=== PATIENT | male | born 1990 | race African-American/Black ===

== ENCOUNTER 2020-07-19 18:41 | Emergency (ER) | payer OTHER, SELFPAY ==
--- NOTE | ~2020-07-19 | XR_ITS ---
EXAMINATION: XR chest 2V DATE: 07/19/2020 20:10 INDICATION: Chest pain, sickle cell crisis TECHNIQUE: PA and lateral views of the chest are obtained. COMPARISON: None available FINDINGS: The lungs are free of acute opacities. There is no pleural effusion or pneumothorax. The ca rdiomediastinal silhouette is normal. The visualized bones and soft tissues are unremarkable. Surgica l clips in the right upper quadrant are likely from prior cholecystectomy. IMPRESSION: 1. No acute cardiopulmonary abnormality. Reviewed, dictated and finalized at location A.
[2020-07-19 18:53] VITALS: BP 139/84; PULSE 100; RESP 20; TEMP 36.9; O2SAT 99
[2020-07-19 19:17] LABS: Basophils Absolute Auto 0.1 K/mm3 (0.0-0.1); Basophils Percent Auto 1.2 % (0.2-1.2); Eosinophils Absolute Auto 0.5 K/mm3 (0-0.3); Eosinophils Percent Auto 4.7 % (0-4.4); Hematocrit 32.7 % (42.0-52.0); Hemoglobin 10.4 g/dL (14.0-18.0); Immature Granulocyte Absolute 0.03 K/mm3 (0.00-0.031); Immature Granulocyte Percent A 0.3 % (0-0.5); Immature Reticulocyte Fraction 32.6 % (3.0-15.9); Lymphocytes Absolute Auto 3.98 K/mm3 (0.9-3.2); Lymphocytes Percent Auto 35.3 % (18.3-44.2); Mean Corpuscular HGB Conc 31.8 g/dl (32-36); Mean Corpuscular Hemoglobin 17.3 pg (26-34); Mean Corpuscular Volume 54.3 fl (80-100); Monocytes Percent Auto 9.1 % (2.6-8.5); Neutrophils Absolute Auto 5.6 K/mm3 (1.3-6.7); Neutrophils Percent Auto 49.4 % (45.5-73.1); Nucleated Red Blood Cells Absolute Auto 0.5 K/mm3 (0.0-0.012); Platelet Count Result 601 k/mm3 (150-375); Red Blood Count 6.02 M/mm3 (4.6-6.20); Red Cell Distribution Width 25.2 % (11.5-14.5); Reticulocyte Hemoglobin Conten 19.3 pg (28.2-35.7); Reticulocyte Percent 1.83 % (0.7-4.3); Reticulocytes Absolute 0.11 B/L (32.2-175.7); White Blood Count 11.3 K/mm3 (4.5-10.0)
[2020-07-19 19:22] LABS: Alanine Aminotransferase 21 U/L (4-50); Albumin Level 4.6 g/dL (3.5-5.1); Alkaline Phosphatase 76 U/L (38-126); Anion Gap 10 mmol/L (8-16); Aspartate Amino Transferase 28 U/L (17-59); Bilirubin,Total 1.3 mg/dL (0.2-1.3); Blood Urea Nitrogen 12 mg/dL (9-20); Calcium 8.9 mg/dL (8.4-10.2); Carbon Dioxide 24 mmol/L (22-30); Chloride 104 mmol/L (98-107); Estimated CRCL calculation 113 ml/min; Estimated Glomerular Filt Rate > 60; Glucose 126 mg/dL (75-110); Potassium 3.8 mmol/L (3.4-5.0); Sodium 138 mmol/L (137-145)
[2020-07-19 19:53] LABS: Anisocytosis 3+ (NORMAL); Hypochromasia 1+ (NORMAL); Platelet Estimate Increased (Adequate)
[2020-07-19] MEDS: SODIUM CHLORIDE 0.9% IV 1,000 ML 999 ML IV CONT ×2 (20:34→21:31)
--- NOTE | 2020-07-19 20:38 | ED.GENADULT ---
HPI - General Adult General Chief complaint: Unspecified Stated complaint: sickle cell Time Seen by Provider: 07/19/20 19:47 Source: patient Mode of arrival: ambulatory Limitations: no limitations History of Present Illness HPI narrative: 29 years old -[place] male presents with pain across lumbar area radiating through right thigh started 1-1/2-week ago. Patient denies any fever, chills, nausea, vomiting, chest pain, shortness of breath, headache. History of sickle cell anemia, currently patient on oxycodone 30 mg every 6 hours as needed pain. Which is not working lately. Patient is from [place] came to visit his brother yesterday, Patient was seen at [facility] in [place] on July 17, received IV fluid, IV Dilaudid and got better. Patient was not admitted to the hospital at that time. Patient blaming the long hours drives probably triggered his lower back pain. Related Data Home Medications Medication Instructions Recorded Confirmed cholecalciferol (vitamin D3) 25 mcg PO DAILY 07/19/20 07/19/20 [Vitamin D3] folic acid 1 mg PO DAILY 07/19/20 07/19/20 hydroxyurea (sickle cell) 500 mg PO BID 07/19/20 07/19/20 Allergies Allergy/AdvReac Type Severity Reaction Status Date / Time vancomycin Allergy Severe Muscle Verified 07/19/20 19:45 Spasms Review of Systems Review of Systems: Narrative: CONSTITUTIONAL: Denies fever, chills, or sweats. EYES: Denies visual changes, redness, or discharge. ENT: Denies rhinorrhea, congestion, sore throat, or otalgia. CARDIOVASCULAR: Denies chest pain, palpitations, or edema. RESPIRATORY: Denies cough or dyspnea. GASTROINTESTINAL: Denies abdominal pain, nausea, vomiting, or diarrhea. GENITOURINARY: Denies dysuria or hematuria. SKIN: Denies rash or itching. MUSCULOSKELETAL: Denies back pain, joint pain, or myalgia. NEUROLOGIC: Denies headache, numbness, or weakness. PSYCHIATRIC: Denies anxiety or depression. PMFSH Social History Social History (Updated 07/19/20 @ 20:44 by Ilia Pino MD) Social History: Patient denies smoking or drinking. Second hand tobacco smoke exposure: No Exam Narrative: Exam Narrative: General appearance: Well-developed, well-nourished Skin: Normal color Head: Normocephalic, nontraumatic Eyes: Clear conjunctiva ENT: Oropharynx normal, ears normal, nose normal Neck: Supple, nontender Chest and respiratory: Airway patent, no respiratory distress, no accessory muscle use Heart: Regular rate/rhythm Abdomen: Soft, nontender, no organomegaly, quiet bowel sounds Vascular: Normal peripheral pulses, normal capillary refill. Musculoskeletal: Normal range of motion, nontender back Neurologic: Alert and oriented ?3, BUNDLE CLERK is normal as tested, no gross motor deficit Course Course Emergency Course: Improving Reevaluation(s) Reevaluation #1: Patient feeling much better and would like to have lasted 0.5 mg of Dilaudid IV prior to discharge. Patient received 1 mg and so far. And is getting better. Patient would like to go home. Date: 07/19/20 Time: 23:24 Vital Signs Vital signs: Vital Signs Temperature 36.9 C 07/19/20 18:53 Pulse Rate 100 07/19/20 18:53 Respiratory Rate 20 07/19/20 18:53 Blood Pressure 139/84 07/19/20 18:53 Pulse Oximetry 99 07/19/20 18:53 Temperature 36.9 C 07/19/20 18:53 Pulse Rate 80 07/19/20 21:31 Respiratory Rate 18 07/19/20 21:31 Blood Pressure 123/73 07/19/20 21:31 Pulse Oximetry 98 07/19/20 21:31 Medical Decision Making MDM Narrative Medical decision making narrative: Patient presents with lower back pain and right lower leg pain which is very much similar to his previo
[2020-07-19] MEDS: ONDANSETRON INJ 4 MG/2 ML VIAL IV PUSH (21:23)
[2020-07-19] MEDS: HYDROmorphone HCL INJ (*CRX) 1 MG/ML SYR 0.5 MG IV PUSH ×3 (21:23→23:19)
[2020-07-19 21:31] VITALS: BP 123/73; PULSE 80; RESP 18; O2SAT 98
[2020-07-19 23:48] VITALS: BP 124/73; PULSE 79; RESP 16; O2SAT 98
== END 2020-07-19 23:49 | disposition home or self-care (01) ==
PROVIDERS: Emergency Provider Emergency Medicine
DX: D57.00 Hb-SS disease with crisis, unspecified (principal)
CPT/HCPCS: 36415; 71046; 80053; 85025; 85046; 85055; 96361; 96374; 96375; 96376; 99284; J1170; J2405; J7030

== ENCOUNTER 2020-07-20 23:52 | Emergency (ER) | payer MEDICARE, SELFPAY ==
--- NOTE | ~2020-07-20 | XR_ITS ---
XR femur RT min 2V 07/21/2020 00:37 Indication: Sickle cell crisis. Right leg pain. Procedure: 2 views right femur Comparison: No prior studies for comparison. Findings: No acute fracture, subluxation or dislocation. There is patchy sclerosis of the mid and dis ollie femoral shaft, suspicious for bone infarction. No significant soft tissue abnormality. No foreign bodies. Impression: 1: Patchy sclerosis of the mid and distal right femoral shaft, suspicious for bone infarction. Reviewed, dictated and finalized at location A. Impression: 1: Patchy sclerosis of the mid and distal right femoral shaft, suspicious for b one infarction.
--- NOTE | ~2020-07-20 | XR_ITS ---
LUMBAR SPINE INDICATION: Low back pain TECHNIQUE: 4 views lumbar spine COMPARISON: None FINDINGS: No fracture, subluxation or dislocation. No evidence for spondylolysis or spondylolisthesi s. Vertebral bodies and disk spaces are preserved. IMPRESSION: 1: No acute abnormality of the lumbar spine identified. Reviewed, dictated and finalized at location A.
--- NOTE | ~2020-07-20 | XR_ITS ---
EXAMINATION: XR chest 2V 07/21/2020 00:37 INDICATION: Sickle cell crisis. Chest pain. PROCEDURE: PA and lateral views of the chest COMPARISON: 07/19/2020 FINDINGS: The lungs are clear. The cardiomediastinal silhouette is within normal limits. There are no pleural effusions. There is no pneumothorax suspected. There are cholecystectomy clips. IMPRESSION: 1: NO ACUTE CARDIOPULMONARY DISEASE. Reviewed, dictated and finalized at location A.
--- NOTE | ~2020-07-20 | XR_ITS ---
XR hip BI 2V w AP pelvis 07/21/2020 00:37 INDICATION: Hip pain. Sickle cell crisis. PROCEDURE: AP view of the pelvis and 2 views each hip COMPARISON: No prior studies for comparison. FINDINGS: Fracture, dislocation or subluxation is not identified. There is an intramedullary sophie morales sfixing the left femur with healing fracture deformity of the left femoral shaft. There is adjacent h eterotopic ossification. The soft tissues appear within normal limits. No foreign bodies are identif ied. IMPRESSION: 1: NO ACUTE BONE OR JOINT ABNORMALITY IDENTIFIED. Reviewed, dictated and finalized at location A.
[2020-07-21 00:03] VITALS: BP 128/77; PULSE 78; RESP 20; TEMP 36.8; O2SAT 100
--- NOTE | 2020-07-21 00:08 | ED.RECABL ---
HPI - Recheck/Abnormal Lab/Rx General Chief Complaint: Recheck/Abnormal Lab/Rx Stated Complaint: sickle cell pain Time Seen by Provider: 07/21/20 00:07 Source: patient and family Mode of arrival: ambulatory Limitations: no limitations History of Present Illness HPI narrative: Patient is a 29-year-old male with a history of sickle cell disease who presents with family for evaluation of recurrent pain in his lower back and right hip. Patient was seen here yesterday in the ER for similar pain and left feeling improved but then pain recurred this afternoon. Patient has been taking his oxycodone with some improvement in his pain but not complete resolution. He denies fever, chills, chest pain, shortness of breath. No rhinorrhea or congestion. He states he is in town from [place] visiting family does not live here permanently. He states he does not have a pain management plan that he can do outpatient at this point. Patient states he believes the drive from [place] aggravated his lower back pain. Patient's radar mechanic is also in [place]. He has not contacted them over the phone. No recent sick contacts. No nausea, vomiting or abdominal pain. Patient denies any urinary symptoms. Related Data Home Medications Medication Instructions Recorded Confirmed cholecalciferol (vitamin D3) 25 mcg PO DAILY 07/19/20 07/19/20 [Vitamin D3] folic acid 1 mg PO DAILY 07/19/20 07/19/20 hydroxyurea (sickle cell) 500 mg PO BID 07/19/20 07/19/20 Allergies Allergy/AdvReac Type Severity Reaction Status Date / Time vancomycin Allergy Severe Muscle Verified 07/19/20 19:45 Spasms Review of Systems Review of Systems: Narrative: CONSTITUTIONAL: Denies fever, chills, or sweats. ENT: Denies rhinorrhea, congestion, sore throat, or otalgia. CARDIOVASCULAR: Denies chest pain, palpitations, or edema. RESPIRATORY: Denies cough or dyspnea. GASTROINTESTINAL: Denies abdominal pain, nausea, vomiting, or diarrhea. GENITOURINARY: Denies dysuria or hematuria. SKIN: Denies rash or itching. MUSCULOSKELETAL: Reports back pain, right hip pain NEUROLOGIC: Denies headache, numbness, or weakness. PSYCHIATRIC: Denies anxiety or depression. [facility] Past Medical History Medical History (Updated 07/21/20 @ 03:45 by Alicia Nguyễn MD) Sickle cell disease Social History Social History (Updated 07/21/20 @ 00:16 by Alicia Nguyễn MD) Social History: Patient denies smoking or drinking. Second hand tobacco smoke exposure: No Alcohol intake: never Substance use: never Living arrangements: with family Gender identity (if verbalized by the patient): Male Exam Narrative: Exam Narrative: GENERAL: Awake, alert, conversant HEAD: Normocephalic, atraumatic. EYES: PERRLA and EOMI. ENT: Nares clear, no rhinorrhea or epistaxis. Mucous membranes moist. NECK: Supple. CHEST: No respiratory distress, breathing even and non labored, no coarse breath sounds HEART: Regular rate, sinus rhythm ABDOMEN:Non distended, non tender EXTREMITIES: Normal range of motion. No edema. No tenderness to palpation of the right hip. No deformity. Neurovascularly intact. No edema. No erythema or warmth. SKIN: Warm, dry, no rash. NEURO:No focal deficits. Alert and oriented x3 Course Vital Signs Vital signs: Vital Signs Temperature 36.8 C 07/21/20 00:03 Pulse Rate 78 07/21/20 00:03 Respiratory Rate 20 07/21/20 00:03 Blood Pressure 128/77 07/21/20 00:03 Pulse Oximetry 100 07/21/20 00:03 Temperature 36.8 C 07/21/20 00:03 Pulse Rate 68 07/21/20 02:26 Respiratory Rate 18 07/21/20 02:26 Blood Pressure 133/79 07/21/20 02:26 Pulse Oximetry 100 07/21/20 02:26 MDM - Recheck/Abnormal Lab/Rx MDM Narrative Medical decision making narrative: Patient is a 29-year-old male with a history of sickle cell disease that presented for evaluation of hip and back pain. Patient had visit to this ER yesterday for similar symptoms, he states he
[2020-07-21 00:55] LABS: Basophils Absolute Auto 0.2 K/mm3 (0.0-0.1); Basophils Percent Auto 1.4 % (0.2-1.2); Eosinophils Absolute Auto 0.6 K/mm3 (0-0.3); Eosinophils Percent Auto 5.3 % (0-4.4); Hematocrit 32.8 % (42.0-52.0); Hemoglobin 10.3 g/dL (14.0-18.0); Immature Granulocyte Absolute 0.03 K/mm3 (0.00-0.031); Immature Granulocyte Percent A 0.3 % (0-0.5); Lymphocytes Absolute Auto 3.39 K/mm3 (0.9-3.2); Lymphocytes Percent Auto 29.5 % (18.3-44.2); Mean Corpuscular HGB Conc 31.4 g/dl (32-36); Mean Corpuscular Hemoglobin 17.2 pg (26-34); Mean Corpuscular Volume 54.8 fl (80-100); Monocytes Absolute Auto 1.1 K/mm3 (0.1-0.6); Monocytes Percent Auto 9.9 % (2.6-8.5); Neutrophils Absolute Auto 6.2 K/mm3 (1.3-6.7); Neutrophils Percent Auto 53.6 % (45.5-73.1); Nucleated Red Blood Cells Absolute Auto 0.3 K/mm3 (0.0-0.012); Nucleated Red Blood Cells Perc 2.6 % (0.0-0.2); Platelet Count Result 572 k/mm3 (150-375); Red Blood Count 5.98 M/mm3 (4.6-6.20); Red Cell Distribution Width 25.2 % (11.5-14.5); Reticulocyte Percent 1.79 % (0.7-4.3); Reticulocytes Absolute 0.11 B/L (32.2-175.7); White Blood Count 11.5 K/mm3 (4.5-10.0)
[2020-07-21] MEDS: diphenhydrAMINE HCl INJ 50 MG/ML VIAL 25 MG IV PUSH (00:59)
[2020-07-21] MEDS: SODIUM CHLORIDE 0.9% IV 1,000 ML 999 ML IV CONT (01:01)
[2020-07-21] MEDS: HYDROmorphone HCL INJ (*CRX) 1 MG/ML SYR IV PUSH (01:02)
[2020-07-21 01:07] LABS: Anion Gap 5 mmol/L (8-16); Blood Urea Nitrogen 12 mg/dL (9-20); Calcium 8.8 mg/dL (8.4-10.2); Carbon Dioxide 26 mmol/L (22-30); Chloride 108 mmol/L (98-107); Estimated CRCL calculation 114 ml/min; Estimated Glomerular Filt Rate > 60; Glucose 96 mg/dL (75-110); Lactate Dehydrogenase 576 U/L (313-618); Potassium 4.7 mmol/L (3.4-5.0); Sodium 139 mmol/L (137-145)
[2020-07-21 01:10] LABS: Platelet Estimate Adequate (Adequate)
[2020-07-21 01:11] LABS: Target Cells 3+ (NORMAL)
[2020-07-21 01:12] LABS: Anisocytosis 1+ (NORMAL)
[2020-07-21] MEDS: HYDROmorphone HCL INJ (*CRX) 1 MG/ML SYR IM (02:22)
[2020-07-21] MEDS: KETOROLAC 30 MG/ML VIAL (*BKC) IV PUSH (02:23)
[2020-07-21 02:26] VITALS: BP 133/79; PULSE 68; RESP 18; O2SAT 100
[2020-07-21 03:07] LABS: Add Urine Microscopic? YES; Appearance Urine Clear (Clear); Bacteria Urine Trace /hpf; Bilirubin Urine Negative (Negative); Blood Urine Negative (Negative); Color Urine Yellow (Yellow); Glucose Urine UA Negative (Negative); Ketones Urine Negative (Negative); Leukocyte Esterase Ur Negative LEU/UL (Negative); Nitrate Urine Negative (Negative); Protein Urine Negative (Negative); RBC Urine 0-2 /hpf (0-2); Specific Grav Ur 1.014 (1.001-1.035); WBC Urine 0-3 /hpf
[2020-07-21] MEDS: HYDROmorphone HCL INJ (*CRX) 1 MG/ML SYR 2 MG IV PUSH (04:49)
[2020-07-21 04:55] VITALS: BP 134/80; PULSE 75; RESP 20; O2SAT 97
== END 2020-07-21 05:08 | disposition home or self-care (01) ==
PROVIDERS: Emergency Provider Emergency Medicine
DX: D57.00 Hb-SS disease with crisis, unspecified (principal)
CPT/HCPCS: 36415; 71046; 72100; 73521; 73552; 80048; 81001; 83615; 85025; 85046; 85055; 96365; 96366; 96375; 96376; 99284; J0131; J1170; J1200; J1885; J7030

== ENCOUNTER 2020-12-26 18:49 | Emergency (ER) | payer MEDICARE, SELFPAY ==
[2020-12-26 18:56] VITALS: BP 127/88; PULSE 71; RESP 18; TEMP 36.4; O2SAT 100
[2020-12-26 20:45] VITALS: BP 139/92; PULSE 65; RESP 20; TEMP 36.4; O2SAT 100
--- NOTE | 2020-12-26 21:52 | ED.GENADULT ---
HPI - General Adult General Chief complaint: Unspecified Stated complaint: sickle cell pain Time Seen by Provider: 12/26/20 21:42 Source: patient History of Present Illness HPI narrative: Patient is a 29 y/o male complaining of left arm pain and right leg pain. He describes his pain as aching and rates it as 8/10. He has been taking his usual oxycodone for sickle cell pain and it did not help. He has no fever, chill, nausea or vomiting. Related Data Home Medications Medication Instructions Recorded Confirmed cholecalciferol (vitamin D3) 25 mcg PO DAILY 07/19/20 07/19/20 [Vitamin D3] folic acid 1 mg PO DAILY 07/19/20 07/19/20 hydroxyurea (sickle cell) 500 mg PO BID 07/19/20 07/19/20 oxycodone [Roxicodone] 30 mg PO Q4H PRN 12/26/20 Allergies Allergy/AdvReac Type Severity Reaction Status Date / Time vancomycin Allergy Severe Muscle Verified 12/26/20 18:59 Spasms ketorolac [From Toradol] Allergy Dyspnea / Verified 12/26/20 19:00 SOB morphine Allergy Dyspnea / Verified 12/26/20 19:00 SOB Review of Systems Constitutional: Constitutional: Denies chills, Denies fever(s), Denies headache(s) and Denies weakness Eyes: Eyes: Denies blurry vision ENT: Denies headache(s) and Denies neck pain Cardiovascular: Cardiovascular: Denies chest pain and Denies dyspnea Respiratory: Respiratory: Denies cough and Denies dyspnea Gastrointestinal: Gastrointestinal: Denies abdominal pain, Denies diarrhea, Denies nausea and Denies vomiting Genitourinary: Genitourinary: Denies hematuria and Denies dysuria Musculoskeletal: Musculoskeletal: Reports as per HPI, Denies back pain and Denies neck pain Neurologic: Denies headache(s) and Denies weakness [facility] Past Medical History Medical History Sickle cell disease Social History Social History Social History: Patient denies smoking or drinking. Second hand tobacco smoke exposure: No Alcohol intake: never Substance use: never Gender identity (if verbalized by the patient): Male Exam Const: General: no acute distress and well developed Orientation/consciousness: oriented to person, oriented to place, oriented to time and patient oriented x3 HENMT: Head: normocephalic Ears: external ears normal General nose exam: Normal external nose present Eyes: General: appearance normal, both eyes and all related structures Conjunctivae: conjunctivae normal Neck: Neck: normal visual inspection and full ROM Chest: Chest palpation & inspection: normal inspection of the chest and no tenderness Resp: Effort & Inspection: normal respiratory effort Auscultation: clear to auscultation bilaterally Cardio: Rate: regular rate Rhythm: regular rhythm GI: GI Palp: No abdominal tenderness and Yes Soft to palpation Skin: General skin exam: normal color and turgor normal Neuro: General: oriented to person, oriented to place, oriented to time and patient oriented x3 Cognition (Neuro): normal cognition Extrem: General: normal to inspection, full ROM and no pedal edema Psych: Appearance: grossly normal Mental Status: mental status grossly normal Affect: normal affect Course Vital Signs Vital signs: Vital Signs Temperature 36.4 C L 12/26/20 18:56 Pulse Rate 71 12/26/20 18:56 Respiratory Rate 18 12/26/20 18:56 Blood Pressure 127/88 12/26/20 18:56 Pulse Oximetry 100 12/26/20 18:56 Temperature 36.4 C L 12/27/20 00:10 Pulse Rate 76 12/27/20 00:10 Respiratory Rate 15 12/27/20 00:10 Blood Pressure 126/72 12/27/20 00:10 Pulse Oximetry 100 12/27/20 00:10 Medical Decision Making Vital Signs Vital Signs: Vital Signs Temperature 36.4 C L 12/26/20 18:56 Pulse Rate 71 12/26/20 18:56 Respiratory Rate 18 12/26/20 18:56 Blood Pressure 127/88 12/26/20 18:56 Pulse Oximetry 100 12/26/20 18:56 Temperature 36.4
[2020-12-26 22:01] LABS: Basophils Absolute Auto 0.2 K/mm3 (0.0-0.1); Basophils Percent Auto 1.5 % (0.2-1.2); Eosinophils Absolute Auto 0.3 K/mm3 (0-0.3); Eosinophils Percent Auto 3.3 % (0-4.4); Hematocrit 36.2 % (42.0-52.0); Hemoglobin 11.3 g/dL (14.0-18.0); Immature Granulocyte Absolute 0.02 K/mm3 (0.00-0.031); Immature Granulocyte Percent A 0.2 % (0-0.5); Immature Reticulocyte Fraction 31.7 % (3.0-15.9); Lymphocytes Absolute Auto 4.18 K/mm3 (0.9-3.2); Lymphocytes Percent Auto 40.9 % (18.3-44.2); Mean Corpuscular HGB Conc 31.2 g/dl (32-36); Mean Corpuscular Hemoglobin 17.2 pg (26-34); Mean Platelet Volume 9.5 fl (7.4-10.4); Monocytes Absolute Auto 0.9 K/mm3 (0.1-0.6); Monocytes Percent Auto 8.3 % (2.6-8.5); Neutrophils Absolute Auto 4.7 K/mm3 (1.3-6.7); Neutrophils Percent Auto 45.8 % (45.5-73.1); Nucleated Red Blood Cells Absolute Auto 0.3 K/mm3 (0.0-0.012); Nucleated Red Blood Cells Perc 2.4 % (0.0-0.2); Platelet Count Result 663 k/mm3 (150-375); Red Blood Count 6.58 M/mm3 (4.6-6.20); Red Cell Distribution Width 25.3 % (11.5-14.5); Reticulocyte Hemoglobin Conten 21.7 pg (28.2-35.7); Reticulocyte Percent 1.71 % (0.7-4.3); Reticulocytes Absolute 0.11 B/L (32.2-175.7); White Blood Count 10.2 K/mm3 (4.5-10.0)
[2020-12-26 22:12] LABS: Alanine Aminotransferase 21 U/L (4-50); Albumin Level 4.6 g/dL (3.5-5.1); Alkaline Phosphatase 77 U/L (38-126); Anion Gap 8 mmol/L (8-16); Aspartate Amino Transferase 32 U/L (17-59); Bilirubin,Total 1.3 mg/dL (0.2-1.3); Blood Urea Nitrogen 7 mg/dL (9-20); Calcium 9.1 mg/dL (8.4-10.2); Carbon Dioxide 27 mmol/L (22-30); Chloride 104 mmol/L (98-107); Estimated CRCL calculation 114 ml/min; Estimated Glomerular Filt Rate > 60; Glucose 96 mg/dL (75-110); Potassium 3.9 mmol/L (3.4-5.0); Sodium 139 mmol/L (137-145)
[2020-12-26] MEDS: SODIUM CHLORIDE 0.9% IV 1,000 ML 999 ML IV CONT (22:19)
[2020-12-26] MEDS: fentaNYL CITRATE INJ (*CRX) 100 MCG/2 ML VIAL 50 MCG IV PUSH ×2 (22:19→23:40)
[2020-12-26 22:22] LABS: Anisocytosis 3+ (NORMAL); Hypochromasia 1+ (NORMAL); Platelet Estimate Increased (Adequate)
[2020-12-26 22:23] LABS: Target Cells 2+ (NORMAL)
[2020-12-27 00:10] VITALS: BP 126/72; PULSE 76; RESP 15; TEMP 36.4; O2SAT 100
== END 2020-12-27 00:11 | disposition home or self-care (01) ==
PROVIDERS: Emergency Provider Emergency Medicine
DX: D57.00 Hb-SS disease with crisis, unspecified (principal)
CPT/HCPCS: 36415; 80053; 85025; 85046; 96361; 96374; 96376; 99284; J3010; J7030

== ENCOUNTER 2021-01-07 00:53 | Emergency (ER) | payer MEDICARE, SELFPAY ==
--- NOTE | ~2021-01-07 | XR_ITS ---
EXAMINATION: XR chest 1V portable DATE: 01/07/2021 01:41 INDICATION: Chest pain. Sickle cell disease. TECHNIQUE: A single frontal view of the chest was obtained on 2 radiographs. COMPARISON: Chest 2 views 07/21/2020 FINDINGS: The chest demonstrates clear lungs without pneumonia, pleural effusion, or pneumothorax. Th e heart size is normal. IMPRESSION: 1. No acute cardiopulmonary disease. Reviewed, dictated and finalized at location A.
[2021-01-07 00:56] VITALS: BP 133/88; PULSE 83; RESP 20; TEMP 36.6; O2SAT 99
--- NOTE | 2021-01-07 01:00 | PC.NURSE ---
Pt presents to ED with complaint of sickle cell crisis. Pt states he is experiencing pain in right arm and right leg. Pain rated 8/10 at this time. Pt states he tx pain at approx 1700 with 30mg roxycodone with no relief. Pt resting on cart at this time on cell phone. Pt breathing noted to be even and unlabored, denies pain, nvd, fever, chills, chest pain and sob. Pt noted to be alert and oriented x4 with family member at bedside.
[2021-01-07 01:08] VITALS: BP 131/80; PULSE 79; RESP 19; O2SAT 98
[2021-01-07 01:13] VITALS: BP 131/80; PULSE 75; RESP 20; O2SAT 97
--- NOTE | 2021-01-07 01:29 | ECG_ITS ---
Measurements Intervals [place] Rate: 73 P: 64 MA: 168 QRS: 77 QRSD: 105 T: 26 QT: 376 QTc: 416 Interpretive Statements SINUS RHYTHM RSR' IN V1 OR V2, CONSIDER RIGHT VENTRICULAR HYPERTROPHY OR RIGHT VCD ST ELEVATION IN DIFFUSE LEADS, PROBABLY EARLY REPOLARIZATION BORDERLINE ECG Electronically Signed On 01-07-2021 8:27:25 CDT by Pranay Vanegas D.O.
--- NOTE | 2021-01-07 01:35 | PC.NURSE ---
CXR completed at bedside.
--- NOTE | 2021-01-07 01:41 | ED.GENADULT ---
HPI - General Adult General Chief complaint: Unspecified Stated complaint: Sickle cell Time Seen by Provider: 01/07/21 01:25 History of Present Illness HPI narrative: Patient is 30-year-old gentleman who presents the emergency department with chief complaint of sickle cell pain. The patient reports that he has history of sickle cell disease and is normally followed by hematology at [facility]. Patient reports that he started having pain worse in his legs that is characteristic of his typical sickle cell pain crisis. Patient denies fever denies cough denies shortness of breath. Patient reports that he he is just in the area visiting and plans to go back to [place] in the near future. Related Data Home Medications Medication Instructions Recorded Confirmed cholecalciferol (vitamin D3) 25 mcg PO DAILY 07/19/20 07/19/20 [Vitamin D3] folic acid 1 mg PO DAILY 07/19/20 07/19/20 hydroxyurea (sickle cell) 500 mg PO BID 07/19/20 07/19/20 oxycodone [Roxicodone] 30 mg PO Q4H PRN 12/26/20 Allergies Allergy/AdvReac Type Severity Reaction Status Date / Time vancomycin Allergy Severe Muscle Verified 01/07/21 01:01 Spasms ketorolac [From Toradol] Allergy Dyspnea / Verified 01/07/21 01:01 SOB morphine Allergy Dyspnea / Verified 01/07/21 01:01 SOB Review of Systems Review of Systems: Narrative: A 10 system review of systems was completed on the patient and is negative except for what is stated in the HPI. Nursing and ancillary documentation was reviewed. [facility] Past Medical History Medical History Sickle cell disease Social History Social History Social History: Patient denies smoking or drinking. Second hand tobacco smoke exposure: No Alcohol intake: never Substance use: never Gender identity (if verbalized by the patient): Male Exam Narrative: Exam Narrative: GENERAL: Well-appearing, well-nourished, and in no acute distress. Patient is resting on the stretcher watching videos on his phone in no distress HEAD: Normocephalic, atraumatic. EYES: PERRLA and EOMI. ENT: Nares clear, no rhinorrhea or epistaxis. Mucous membranes moist. NECK: Supple. CHEST: Clear to auscultation. No respiratory distress. HEART: Regular rate and rhythm. No murmur heard. Normal peripheral pulses. ABDOMEN: Soft, nontender, nondistended, normal active bowel sounds. EXTREMITIES: Normal range of motion. No edema. SKIN: Warm, dry, no rash. NEURO: No focal deficits. Alert and oriented x3. PSYCH: Normal mood and affect. Course Course Emergency Course: Patient is feeling much better at this time and will receive 1 more dose of pain medicine and the plan will be to discharge home Vital Signs Vital signs: Vital Signs Temperature 36.6 C 01/07/21 00:56 Pulse Rate 83 01/07/21 00:56 Respiratory Rate 20 01/07/21 00:56 Blood Pressure 133/88 01/07/21 00:56 Pulse Oximetry 99 01/07/21 00:56 Temperature 36.9 C 01/07/21 03:06 Pulse Rate 88 01/07/21 03:06 Respiratory Rate 14 01/07/21 03:06 Blood Pressure 143/89 H 01/07/21 03:06 Pulse Oximetry 98 01/07/21 03:06 Medical Decision Making Vital Signs Vital Signs: Vital Signs Temperature 36.6 C 01/07/21 00:56 Pulse Rate 83 01/07/21 00:56 Respiratory Rate 20 01/07/21 00:56 Blood Pressure 133/88 01/07/21 00:56 Pulse Oximetry 99 01/07/21 00:56 Temperature 36.9 C 01/07/21 03:06 Pulse Rate 88 01/07/21 03:06 Respiratory Rate 14 01/07/21 03:06 Blood Pressure 143/89 H 01/07/21 03:06 Pulse Oximetry 98 01/07/21 03:06 Lab Data Result diagrams: 01/07/21 03:17 01/07/21 03:17 Labs: Lab Results 01/07/21 01/07/21 Range/Units 03:17 03:17 WBC 9.2 (4.5-10.0) K/mm3 RBC 5.84 (4.6-6.20) M/mm3 Hgb 10.1 L (14.0-18.0) g/dL Hct 32.1 L (42.0-52.0)
[2021-01-07 03:06] VITALS: BP 143/89; PULSE 88; RESP 14; TEMP 36.9; O2SAT 98
[2021-01-07] MEDS: SODIUM CHLORIDE 0.9% IV 1,000 ML 999 ML IV CONT (03:09)
[2021-01-07] MEDS: HYDROmorphone HCL INJ (*CRX) 1 MG/ML SYR IV PUSH ×2 (03:11→03:55)
[2021-01-07 03:27] LABS: Basophils Absolute Auto 0.1 K/mm3 (0.0-0.1); Basophils Percent Auto 1.4 % (0.2-1.2); Eosinophils Absolute Auto 0.4 K/mm3 (0-0.3); Hematocrit 32.1 % (42.0-52.0); Hemoglobin 10.1 g/dL (14.0-18.0); Immature Granulocyte Absolute 0.02 K/mm3 (0.00-0.031); Immature Granulocyte Percent A 0.2 % (0-0.5); Immature Platelet Fraction Pct 5.7 % (0.9-11.2); Immature Reticulocyte Fraction 27.9 % (3.0-15.9); Lymphocytes Absolute Auto 3.26 K/mm3 (0.9-3.2); Lymphocytes Percent Auto 35.6 % (18.3-44.2); Mean Corpuscular HGB Conc 31.5 g/dl (32-36); Mean Corpuscular Hemoglobin 17.3 pg (26-34); Monocytes Percent Auto 10.7 % (2.6-8.5); Neutrophils Absolute Auto 4.4 K/mm3 (1.3-6.7); Neutrophils Percent Auto 48.1 % (45.5-73.1); Nucleated Red Blood Cells Absolute Auto 0.3 K/mm3 (0.0-0.012); Nucleated Red Blood Cells Perc 3.4 % (0.0-0.2); Platelet Count Result 521 k/mm3 (150-375); Red Blood Count 5.84 M/mm3 (4.6-6.20); Red Cell Distribution Width 25.2 % (11.5-14.5); Reticulocyte Hemoglobin Conten 19.7 pg (28.2-35.7); Reticulocytes Absolute 0.09 B/L (32.2-175.7); White Blood Count 9.2 K/mm3 (4.5-10.0)
[2021-01-07 03:37] LABS: Alanine Aminotransferase 42 U/L (4-50); Albumin Level 4.4 g/dL (3.5-5.1); Alkaline Phosphatase 76 U/L (38-126); Anion Gap 7 mmol/L (8-16); Aspartate Amino Transferase 42 U/L (17-59); Bilirubin,Total 1.2 mg/dL (0.2-1.3); Blood Urea Nitrogen 12 mg/dL (9-20); Calcium 8.8 mg/dL (8.4-10.2); Carbon Dioxide 26 mmol/L (22-30); Chloride 105 mmol/L (98-107); Estimated CRCL calculation 103 ml/min; Estimated Glomerular Filt Rate > 60; Glucose 101 mg/dL (75-110); Sodium 138 mmol/L (137-145)
[2021-01-07 03:38] LABS: Platelet Estimate Adequate (Adequate); Target Cells 2+ (NORMAL)
--- NOTE | 2021-01-07 03:38 | PC.NURSE ---
Pt resting on cart in its lowest position with call button and personal items within reach. Family member remains at bedside. PT states that pain persists and rates it 8/10 at this time. Will notify EDMD.
[2021-01-07 03:39] LABS: Hypochromasia 2+ (NORMAL); Macrocytosis 1+ (NORMAL)
--- NOTE | 2021-01-07 03:48 | PC.NURSE ---
EDMD at bedside to update pt on poc. All questions and concerns addressed. EDMD placed orders for pain medication.
[2021-01-07 03:58] VITALS: BP 119/83; PULSE 78; RESP 19; TEMP 36.9; O2SAT 97
== END 2021-01-07 04:20 | disposition home or self-care (01) ==
PROVIDERS: Emergency Provider Emergency Medicine
DX: D57.00 Hb-SS disease with crisis, unspecified (principal)
CPT/HCPCS: 36415; 71045; 80053; 85025; 85046; 85055; 93005; 96361; 96374; 96375; 96376; 99284; J1170; J2405; J7030

== ENCOUNTER 2021-01-07 19:32 | Emergency (ER) | payer MEDICARE, SELFPAY ==
[2021-01-07 19:35] VITALS: BP 126/70; PULSE 84; RESP 16; TEMP 36.3; O2SAT 100
--- NOTE | 2021-01-07 20:04 | ED.GENADULT ---
HPI - General Adult General Chief complaint: Unspecified Stated complaint: sickle cell crisis Time Seen by Provider: 01/07/21 19:59 History of Present Illness HPI narrative: Patient is a 30-year-old gentleman who presents the emergency department with chief complaint of right leg pain. Patient states that this is his location for his chronic pain that he has from sickle cell patient was seen in the emergency department earlier this morning and was treated with IV fluids and pain medications and states that he has called his demonstrator knitting and has an appointment for tomorrow when he drives back to [place]. The patient states he is not having any chest pain not having any shortness of breath. The patient states this is his typical sickle cell pain. The patient reports that he is attempted to take his Roxicodone and Tylenol and ibuprofen without success. Related Data Home Medications Medication Instructions Recorded Confirmed cholecalciferol (vitamin D3) 25 mcg PO DAILY 07/19/20 07/19/20 [Vitamin D3] folic acid 1 mg PO DAILY 07/19/20 07/19/20 hydroxyurea (sickle cell) 500 mg PO BID 07/19/20 07/19/20 oxycodone [Roxicodone] 30 mg PO Q4H PRN 12/26/20 Allergies Allergy/AdvReac Type Severity Reaction Status Date / Time vancomycin Allergy Severe Muscle Verified 01/07/21 19:49 Spasms ketorolac [From Toradol] Allergy Dyspnea / Verified 01/07/21 19:49 SOB morphine Allergy Dyspnea / Verified 01/07/21 19:49 SOB Review of Systems Review of Systems: Narrative: A 10 system review of systems was completed on the patient and is negative except for what is stated in the HPI. Nursing and ancillary documentation was reviewed. [facility] Past Medical History Medical History Sickle cell disease Social History Social History Social History: Patient denies smoking or drinking. Second hand tobacco smoke exposure: No Alcohol intake: never Substance use: never Gender identity (if verbalized by the patient): Male Exam Narrative: Exam Narrative: GENERAL: Well-appearing, well-nourished, and in no acute distress. HEAD: Normocephalic, atraumatic. EYES: PERRLA and EOMI. ENT: Nares clear, no rhinorrhea or epistaxis. Mucous membranes moist. NECK: Supple. CHEST: Clear to auscultation. No respiratory distress. HEART: Regular rate and rhythm. No murmur heard. Normal peripheral pulses. ABDOMEN: Soft, nontender, nondistended, normal active bowel sounds. EXTREMITIES: Normal range of motion. No edema. SKIN: Warm, dry, no rash. NEURO: No focal deficits. Alert and oriented x3. PSYCH: Normal mood and affect. Course Vital Signs Vital signs: Vital Signs Temperature 36.3 C L 01/07/21 19:35 Pulse Rate 84 01/07/21 19:35 Respiratory Rate 16 01/07/21 19:35 Blood Pressure 126/70 01/07/21 19:35 Pulse Oximetry 100 01/07/21 19:35 Temperature 36.3 C L 01/07/21 19:35 Pulse Rate 84 01/07/21 19:35 Respiratory Rate 16 01/07/21 19:35 Blood Pressure 126/70 01/07/21 19:35 Pulse Oximetry 100 01/07/21 19:35 Medical Decision Making Vital Signs Vital Signs: Vital Signs Temperature 36.3 C L 01/07/21 19:35 Pulse Rate 84 01/07/21 19:35 Respiratory Rate 16 01/07/21 19:35 Blood Pressure 126/70 01/07/21 19:35 Pulse Oximetry 100 01/07/21 19:35 Temperature 36.3 C L 01/07/21 19:35 Pulse Rate 84 01/07/21 19:35 Respiratory Rate 16 01/07/21 19:35 Blood Pressure 126/70 01/07/21 19:35 Pulse Oximetry 100 01/07/21 19:35 Lab Data Result diagrams: 01/07/21 20:16 01/07/21 20:16 Labs: Lab Results 01/07/21 01/07/21 Range/Units 20:16 20:16 WBC 8.5 (4.5-10.0) K/mm3 RBC 5.87 (4.6-6.20) M/mm3 Hgb 10.1 L (14.0-18.0) g/dL Hct 32.1 L (42.0-52.0) % MCV 54.7 L (80-100) fl MCH 17.2 L (26-34) pg
[2021-01-07] MEDS: SODIUM CHLORIDE 0.9% IV 1,000 ML 999 ML IV CONT (20:11)
[2021-01-07] MEDS: ONDANSETRON INJ 4 MG/2 ML VIAL IV PUSH (20:13)
[2021-01-07] MEDS: HYDROmorphone HCL INJ (*CRX) 1 MG/ML SYR IV PUSH ×2 (20:15→21:09)
[2021-01-07 20:23] LABS: Basophils Absolute Auto 0.1 K/mm3 (0.0-0.1); Basophils Percent Auto 1.7 % (0.2-1.2); Eosinophils Absolute Auto 0.4 K/mm3 (0-0.3); Eosinophils Percent Auto 4.1 % (0-4.4); Hematocrit 32.1 % (42.0-52.0); Hemoglobin 10.1 g/dL (14.0-18.0); Immature Granulocyte Absolute 0.01 K/mm3 (0.00-0.031); Immature Granulocyte Percent A 0.1 % (0-0.5); Immature Platelet Fraction Pct 4.3 % (0.9-11.2); Lymphocytes Percent Auto 34.3 % (18.3-44.2); Mean Corpuscular HGB Conc 31.5 g/dl (32-36); Mean Corpuscular Hemoglobin 17.2 pg (26-34); Mean Corpuscular Volume 54.7 fl (80-100); Monocytes Percent Auto 11.8 % (2.6-8.5); Neutrophils Absolute Auto 4.1 K/mm3 (1.3-6.7); Nucleated Red Blood Cells Absolute Auto 0.3 K/mm3 (0.0-0.012); Nucleated Red Blood Cells Perc 3.9 % (0.0-0.2); Platelet Count Result 538 k/mm3 (150-375); Red Blood Count 5.87 M/mm3 (4.6-6.20); Red Cell Distribution Width 24.7 % (11.5-14.5); White Blood Count 8.5 K/mm3 (4.5-10.0)
[2021-01-07 20:34] LABS: Alanine Aminotransferase 36 U/L (4-50); Alkaline Phosphatase 69 U/L (38-126); Anion Gap 6 mmol/L (8-16); Aspartate Amino Transferase 33 U/L (17-59); Bilirubin,Total 0.9 mg/dL (0.2-1.3); Blood Urea Nitrogen 10 mg/dL (9-20); Calcium 8.7 mg/dL (8.4-10.2); Carbon Dioxide 26 mmol/L (22-30); Chloride 108 mmol/L (98-107); Estimated CRCL calculation 125 ml/min; Estimated Glomerular Filt Rate > 60; Glucose 125 mg/dL (75-110); Potassium 3.7 mmol/L (3.4-5.0); Sodium 140 mmol/L (137-145)
[2021-01-07 20:41] LABS: Platelet Estimate Adequate (Adequate); Target Cells 3+ (NORMAL)
[2021-01-07 21:15] VITALS: BP 120/73; PULSE 81; RESP 19; TEMP 36.7; O2SAT 97
== END 2021-01-07 21:15 | disposition home or self-care (01) ==
PROVIDERS: Emergency Provider Emergency Medicine
DX: D57.00 Hb-SS disease with crisis, unspecified (principal)
CPT/HCPCS: 36415; 80053; 85025; 85055; 96361; 96374; 96375; 96376; 99284; J1170; J2405; J7030

== ENCOUNTER 2021-01-12 02:45 | Emergency (ER) | payer MEDICARE, SELFPAY ==
[2021-01-12 02:48] VITALS: BP 123/73; PULSE 79; RESP 16; TEMP 36.1; O2SAT 97
[2021-01-12 03:10] VITALS: BP 119/80; PULSE 77; RESP 19; TEMP 36.9
[2021-01-12 03:14] VITALS: BP 119/80; PULSE 74; RESP 19; TEMP 36.9; O2SAT 98
[2021-01-12 03:18] LABS: Basophils Absolute Auto 0.1 K/mm3 (0.0-0.1); Basophils Percent Auto 1.2 % (0.2-1.2); Eosinophils Absolute Auto 0.4 K/mm3 (0-0.3); Eosinophils Percent Auto 3.5 % (0-4.4); Hematocrit 34.2 % (42.0-52.0); Hemoglobin 10.8 g/dL (14.0-18.0); Immature Granulocyte Absolute 0.02 K/mm3 (0.00-0.031); Immature Granulocyte Percent A 0.2 % (0-0.5); Immature Platelet Fraction Pct 4.3 % (0.9-11.2); Immature Reticulocyte Fraction 32.9 % (3.0-15.9); Lymphocytes Absolute Auto 3.77 K/mm3 (0.9-3.2); Lymphocytes Percent Auto 33.1 % (18.3-44.2); Mean Corpuscular HGB Conc 31.6 g/dl (32-36); Mean Corpuscular Hemoglobin 17.2 pg (26-34); Mean Corpuscular Volume 54.5 fl (80-100); Monocytes Percent Auto 8.9 % (2.6-8.5); Neutrophils Absolute Auto 6.1 K/mm3 (1.3-6.7); Neutrophils Percent Auto 53.1 % (45.5-73.1); Nucleated Red Blood Cells Absolute Auto 0.3 K/mm3 (0.0-0.012); Nucleated Red Blood Cells Perc 2.5 % (0.0-0.2); Platelet Count Result 549 k/mm3 (150-375); Red Blood Count 6.27 M/mm3 (4.6-6.20); Red Cell Distribution Width 25.1 % (11.5-14.5); Reticulocyte Hemoglobin Conten 20.4 pg (28.2-35.7); Reticulocyte Percent 1.55 % (0.7-4.3); White Blood Count 11.4 K/mm3 (4.5-10.0)
[2021-01-12] MEDS: HYDROmorphone HCL INJ (*CRX) 1 MG/ML SYR IV PUSH ×2 (03:20→04:50)
[2021-01-12 03:27] LABS: Alanine Aminotransferase 28 U/L (4-50); Albumin Level 4.3 g/dL (3.5-5.1); Alkaline Phosphatase 70 U/L (38-126); Anion Gap 6 mmol/L (8-16); Aspartate Amino Transferase 40 U/L (17-59); Bilirubin,Total 1.4 mg/dL (0.2-1.3); Blood Urea Nitrogen 8 mg/dL (9-20); Calcium 8.8 mg/dL (8.4-10.2); Carbon Dioxide 28 mmol/L (22-30); Chloride 106 mmol/L (98-107); Estimated CRCL calculation 113 ml/min; Estimated Glomerular Filt Rate > 60; Glucose 106 mg/dL (75-110); Potassium 3.7 mmol/L (3.4-5.0); Sodium 140 mmol/L (137-145)
[2021-01-12 03:45] LABS: Platelet Estimate Adequate (Adequate); Target Cells 3+ (NORMAL)
[2021-01-12 03:46] LABS: Anisocytosis 2+ (NORMAL)
--- NOTE | 2021-01-12 04:19 | ED.GENADULT ---
HPI - General Adult General Chief complaint: Extremity Problem,Nontraumatic Stated complaint: sickle cell Time Seen by Provider: 01/12/21 03:02 History of Present Illness HPI narrative: Patient 30-year-old gentleman who presents the emergency department chief complaint of sickle cell pain. Patient reports he has pain in his right hip area where he has had chronic pain from his sickle cell disease. The patient reports he has an appointment in [place] and actually is headed to [place] today as opposed to what was thought to be last week on his last visit. Patient denies chest pain denies shortness of breath Related Data Home Medications Medication Instructions Recorded Confirmed cholecalciferol (vitamin D3) 25 mcg PO DAILY 07/19/20 07/19/20 [Vitamin D3] folic acid 1 mg PO DAILY 07/19/20 07/19/20 hydroxyurea (sickle cell) 500 mg PO BID 07/19/20 07/19/20 oxycodone [Roxicodone] 30 mg PO Q4H PRN 12/26/20 Allergies Allergy/AdvReac Type Severity Reaction Status Date / Time vancomycin Allergy Severe Muscle Verified 01/07/21 19:49 Spasms ketorolac [From Toradol] Allergy Dyspnea / Verified 01/07/21 19:49 SOB morphine Allergy Dyspnea / Verified 01/07/21 19:49 SOB Review of Systems Review of Systems: Narrative: A 10 system review of systems was completed on the patient and is negative except for what is stated in the HPI. Nursing and ancillary documentation was reviewed. PMFSH Past Medical History Medical History Sickle cell disease Social History Social History Social History: Patient denies smoking or drinking. Second hand tobacco smoke exposure: No Alcohol intake: never Substance use: never Gender identity (if verbalized by the patient): Male Exam Narrative: Exam Narrative: GENERAL: Well-appearing, well-nourished, and in no acute distress. HEAD: Normocephalic, atraumatic. EYES: PERRLA and EOMI. ENT: Nares clear, no rhinorrhea or epistaxis. Mucous membranes moist. NECK: Supple. CHEST: Clear to auscultation. No respiratory distress. HEART: Regular rate and rhythm. No murmur heard. Normal peripheral pulses. ABDOMEN: Soft, nontender, nondistended, normal active bowel sounds. EXTREMITIES: Normal range of motion. No edema. SKIN: Warm, dry, no rash. NEURO: No focal deficits. Alert and oriented x3. PSYCH: Normal mood and affect. Course Vital Signs Vital signs: Vital Signs Temperature 36.1 C L 01/12/21 02:48 Pulse Rate 79 01/12/21 02:48 Respiratory Rate 16 01/12/21 02:48 Blood Pressure 123/73 01/12/21 02:48 Pulse Oximetry 97 01/12/21 02:48 Temperature 36.9 C 01/12/21 03:14 Pulse Rate 74 01/12/21 03:14 Respiratory Rate 19 01/12/21 03:14 Blood Pressure 119/80 01/12/21 03:14 Pulse Oximetry 98 01/12/21 03:14 Medical Decision Making Vital Signs Vital Signs: Vital Signs Temperature 36.1 C L 01/12/21 02:48 Pulse Rate 79 01/12/21 02:48 Respiratory Rate 16 01/12/21 02:48 Blood Pressure 123/73 01/12/21 02:48 Pulse Oximetry 97 01/12/21 02:48 Temperature 36.9 C 01/12/21 03:14 Pulse Rate 74 01/12/21 03:14 Respiratory Rate 19 01/12/21 03:14 Blood Pressure 119/80 01/12/21 03:14 Pulse Oximetry 98 01/12/21 03:14 Lab Data Result diagrams: 01/12/21 03:10 01/12/21 03:09 Labs: Lab Results 01/12/21 01/12/21 Range/Units 03:09 03:10 WBC 11.4 H (4.5-10.0) K/mm3 RBC 6.27 H (4.6-6.20) M/mm3 Hgb 10.8 L (14.0-18.0) g/dL Hct 34.2 L (42.0-52.0) % MCV 54.5 L (80-100) fl MCH 17.2 L (26-34) pg MCHC 31.6 L (32-36) g/dl RDW 25.1 H (11.5-14.5) % Plt Count 549 H (150-375) k/mm3 MPV TNP Immature Gran % (Auto) 0.2 (0-0.5) % Neut % (Auto) 53.1 (45.5-73.1) % Lymph % (Auto) 33.1 (18.3-44.2) % Cass % (Auto) 8.9
[2021-01-12 04:49] VITALS: BP 121/72; PULSE 74; RESP 20; O2SAT 99
== END 2021-01-12 05:12 | disposition home or self-care (01) ==
PROVIDERS: Emergency Provider Emergency Medicine
DX: D57.00 Hb-SS disease with crisis, unspecified (principal)
CPT/HCPCS: 36415; 80053; 85025; 85046; 85055; 96374; 96376; 99284; J1170